=== PATIENT | female | born 1975 | race Caucasian/White ===

== ENCOUNTER 2016-11-30 18:53 | Emergency (ER) | payer OTHER ==
[~2016-11-30] VITALS: Ht 165.1 cm; Wt 86.7 kg
[~2016-11-30 18:53] MED LIST: ATOR40TA78 PO; BENA20TA2 PO; CITA20TA5 PO; LEVO75TA5 PO; [UNRECOGNIZED DRUG - OTHER] PO; [UNRECOGNIZED DRUG - OTHER] PO; [UNRECOGNIZED DRUG - OTHER] PO
[2016-11-30 19:51] LABS: HEMATOCRIT 40.3 % (34.6-47.8); HEMOGLOBIN 13.8 g/dL (11.7-16.4); WHITE BLOOD COUNT 14.1 x10^3/uL (3.4-10)
[2016-11-30 20:08] LABS: BLOOD UREA NITROGEN 11 mg/dL (7-18)
[2016-11-30 20:16] LABS: ASPARTATE AMINO TRANSFERASE 12 U/L (15-37)
[2016-11-30 21:01] LABS: HCG UR LOT HCG7030192
[2016-11-30 21:14] LABS: HCG UR OBC PASS
[2016-11-30 22:47] VITALS: BP 127/81
== END 2016-11-30 22:49 | disposition home or self-care (01) ==
LOC: ED 20:26
DX: R19.7 Diarrhea, unspecified (principal); R11.2 Nausea with vomiting, unspecified; R10.30 Lower abdominal pain, unspecified; I10 Essential (primary) hypertension
CPT/HCPCS: 36415; 74020; 80053; 81003; 81025; 83690; 85025; 99285